=== PATIENT | male | born 1960 | race Caucasian/White ===

== ENCOUNTER → 2017-01-18 | Outpatient (REF) | payer BC ==
[~2017-01-18] MED LIST: CIAL5TAB PO; PRIL40CA PO; SIMV20TA2 PO
[2017-01-18 19:14] LABS: ALBUMIN 3.8 GM/DL (3.2-5.2); ALBUMIN/GLOBULIN RATIO 1.19 (1.00-1.93); ALKALINE PHOSPHATASE 68 U/L (45-117); ALT/SGPT 33 U/L (12-78); ANION GAP 5 MEQ/L (8-16); AST/SGOT 16 U/L (15-37); BILIRUBIN,TOTAL 0.8 MG/DL (0.2-1.0); BLOOD UREA NITROGEN 12 MG/DL (7-18); CALCIUM LEVEL 8.7 MG/DL (8.5-10.1); CARBON DIOXIDE LEVEL 30 MEQ/L (21-32); CHLORIDE LEVEL 108 MEQ/L (98-107); CHOLESTEROL LEVEL 184 MG/DL (<200); CREATININE FOR GFR 0.89 MG/DL (0.70-1.30); GLOMERULAR FILTRATION RATE > 60.0 (>56); GLUCOSE, FASTING 99 MG/DL (70-105); POTASSIUM SERUM 4.7 MEQ/L (3.5-5.1); SODIUM LEVEL 143 MEQ/L (136-145); TRIGLYCERIDES LEVEL 103 MG/DL (<150)
== END ==
LOC: M SFHCLERA 10:05
PROVIDERS: ATTEND Physician Assistant
DX: Z00.00 Encounter for general adult medical examination without abnormal findings (principal); E78.2 Mixed hyperlipidemia; Z12.5 Encounter for screening for malignant neoplasm of prostate
CPT/HCPCS: 80053; 80061; G0103

== ENCOUNTER → 2017-02-04 | Outpatient (CLI) | payer BC ==
[~2017-02-04] VITALS: Ht 188 cm; Wt 127.0 kg
[~2017-02-04] MED LIST changes: +LIDOCAINE 2% INJ 100 MG/5 ML SDV (FOR ANES.) As Ordered ONE; +NS 1,000 ML IV SCH; +PROPOFOL 500 MG/50 ML VIAL As Ordered ONE
--- NOTE | 2017-02-04 09:14 | ROOR ---
Patient Name: Ja Schafer Procedure Date: 02/04/2017 8:53 AM Date of : 1960 Age: 56 Room: [facility] Gender: Male Note Status: Finalized Procedure: Colonoscopy Indications: High risk colon cancer surveillance: Personal history of colon cancer, (Stalked Malignant polyp/AdenoCA - endoscopic resection with clear margin/stalk 2015) Providers: Igor QUINTANA MD Referring MD: YANET Sosa Requesting Provider: Medicines: Monitored Anesthesia Care Complications: No immediate complications. Procedure: Pre-Anesthesia Assessment: - The heart rate, respiratory rate, oxygen saturations, blood pressure, adequacy of pulmonary ventilation, and response to care were monitored throughout the procedure. The Colonoscope was introduced through the anus and advanced to the cecum, identified by appendiceal orifice and ileocecal valve. The colonoscopy was performed without difficulty. The patient tolerated the procedure well. The quality of the bowel preparation was good. Findings: The perianal and digital rectal examinations were normal. A tattoo was seen at 20 cm proximal to the anus. A post-polypectomy scar was found at the tattoo site. There was no evidence of residual polyp tissue. Biopsies were taken with a cold forceps for histology. The exam was otherwise without abnormality on direct and retroflexion views. Impression: - A tattoo was seen at 20 cm proximal to the anus. A post-polypectomy scar was found at the tattoo site. There was no evidence of residual polyp tissue. Biopsied. - The examination was otherwise normal on direct and retroflexion views. Recommendation: - Repeat colonoscopy in 1 year for surveillance. Igor Quintana MD Igor QUINTANA MD 02/04/2017 9:14:08 AM This report has been signed electronically. Number of Addenda: 0 Note Initiated On: 02/04/2017 8:53 AM Estimated Blood Loss: Estimated blood loss: none.
[2017-02-04 09:40] VITALS: BP 144/97
== END | disposition home or self-care (01) ==
LOC: M OPP 06:54
PROVIDERS: ATTEND Internal Medicine Gastroenterology
DX: Z08 Encounter for follow-up examination after completed treatment for malignant neoplasm (principal); Z85.038 Personal history of other malignant neoplasm of large intestine; R12 Heartburn; G47.30 Sleep apnea, unspecified; R06.83 Snoring; E78.5 Hyperlipidemia, unspecified; F17.290 Nicotine dependence, other tobacco product, uncomplicated; Z79.899 Other long term (current) drug therapy

== ENCOUNTER → 2017-02-10 | Outpatient (REF) | payer BC ==
[~2017-02-10] MED LIST changes: -LIDOCAINE 2% INJ 100 MG/5 ML SDV (FOR ANES.) As Ordered ONE; -NS 1,000 ML IV SCH; -PROPOFOL 500 MG/50 ML VIAL As Ordered ONE
== END ==
LOC: M SFHCLERA 16:20
PROVIDERS: ATTEND Physician Assistant
DX: R00.2 Palpitations (principal)

== ENCOUNTER 2017-09-05 06:03 | Emergency (ER) | payer BC ==
[~2017-09-05] VITALS: Ht 188 cm; Wt 129.5 kg
[2017-09-05] MEDS ORDERED: FLUORESCEIN OPHTH 1 MG STRIP OD ONE (06:45)
[2017-09-05] MEDS ORDERED: TETRACAINE 0.5% OPHTH SOLN 4ML OD ONE (06:45)
[2017-09-05] MEDS ORDERED: VIGA0.02 OD (07:01)
[2017-09-05 07:20] VITALS: BP 126/62
== END 2017-09-05 07:25 | disposition home or self-care (01) ==
LOC: M ED 06:03
DX: H10.31 Unspecified acute conjunctivitis, right eye (principal); E78.00 Pure hypercholesterolemia, unspecified; Z79.899 Other long term (current) drug therapy

== ENCOUNTER 2018-04-07 11:03 | Day surgery (SDC) | payer BC ==
[2018-04-07] MEDS ORDERED: LIDOCAINE 2% INJ 100 MG/5 ML SDV (FOR ANES.) As Ordered (12:17)
[2018-04-07] MEDS ORDERED: PROPOFOL 200 MG/20 ML VIAL As Ordered ×2 (12:17→13:10)
== END 2018-04-07 13:36 | disposition home or self-care (01) ==
LOC: M OPP 11:03
DX: Z12.11 Encounter for screening for malignant neoplasm of colon (principal); D12.5 Benign neoplasm of sigmoid colon; Z85.038 Personal history of other malignant neoplasm of large intestine; K22.70 Barrett's esophagus without dysplasia; R07.89 Other chest pain; K21.9 Gastro-esophageal reflux disease without esophagitis; E78.5 Hyperlipidemia, unspecified; M25.569 Pain in unspecified knee; G47.30 Sleep apnea, unspecified; Z79.899 Other long term (current) drug therapy; F17.210 Nicotine dependence, cigarettes, uncomplicated
CPT/HCPCS: 45385

== ENCOUNTER → 2019-11-02 | Outpatient (CLI) | payer BC ==
[~2019-11-02] MED LIST changes: +OMEP40CA97 PO; -SIMV20TA2 PO; +SIMV20TA22 PO; +VIGA0.02 OD
--- NOTE | 2019-11-02 12:05 | REP ---
Two-view chest: 11/02/2019. Indication: Bronchitis. Cough. Comparison: None. Findings: There is blunting of the right costophrenic angle. No definite air space consolidation or pneumothorax are appreciated. The cardiomediastinal silhouette is unremarkable. Chronic left rib deformities are present. Impression: No pulmonary infiltrate. Minimal blunting of the right costophrenic angle may represent scarring or tiny effusion. Electronically Signed by Mayito Bergeron DO 11/02/2019 11:56 A
== END ==
LOC: M ADAMS 10:32
PROVIDERS: ATTEND Physician Assistant Medical
DX: J20.9 Acute bronchitis, unspecified (principal)

== ENCOUNTER → 2019-12-14 | Outpatient (REF) | payer BC ==
[2019-12-14 12:58] LABS: HEMATOCRIT 50.1 % (42.0-52.0); HEMOGLOBIN 16.1 g/dl (13.5-17.5); MEAN CORPUSCULAR HEMOGLOBIN 29.3 pg (27.0-33.0); MEAN CORPUSCULAR HGB CONC 32.1 g/dl (32.0-36.5); MEAN CORPUSCULAR VOLUME 91.1 fl (80.0-96.0); PLATELET COUNT, AUTOMATED 245 10^3/uL (150-450); WHITE BLOOD COUNT 6.4 10^3/uL (4.0-10.0)
[2019-12-14 13:41] LABS: ALBUMIN 4.1 GM/DL (3.2-5.2); ALT/SGPT 41 U/L (12-78); BILIRUBIN,TOTAL 0.9 MG/DL (0.2-1.0); BLOOD UREA NITROGEN 14 MG/DL (7-18); CALCIUM LEVEL 9.2 MG/DL (8.5-10.1); CARBON DIOXIDE LEVEL 28 MEQ/L (21-32); CHLORIDE LEVEL 106 MEQ/L (98-107); CHOLESTEROL LEVEL 306 MG/DL (<200); CHOLESTEROL RISK RATIO 5.773 (<5); CREATININE FOR GFR 1.05 MG/DL (0.70-1.30); FREE T4 1.08 NG/DL (0.76-1.46); GLOMERULAR FILTRATION RATE > 60.0 (>56); GLUCOSE, FASTING 96 MG/DL (70-100); HDL CHOLESTEROL 53 MG/DL (>40); LDL CHOLESTEROL 226 MG/DL (<100); NON-HDL-C 253 MG/DL; POTASSIUM SERUM 4.5 MEQ/L (3.5-5.1); SODIUM LEVEL 140 MEQ/L (136-145); TOTAL PROTEIN 8.1 GM/DL (6.4-8.2); TRIGLYCERIDES LEVEL 135 MG/DL (<150)
[2019-12-14 14:02] LABS: FOLATE 5.9 NG/ML
[2019-12-14 14:10] LABS: VITAMIN B12 LEVEL 455 PG/ML
== END ==
LOC: M SFHCADAM 08:27
PROVIDERS: ATTEND Physician Assistant
DX: E78.49 Other hyperlipidemia (principal); K21.9 Gastro-esophageal reflux disease without esophagitis; K22.70 Barrett's esophagus without dysplasia; N52.9 Male erectile dysfunction, unspecified; C61 Malignant neoplasm of prostate
CPT/HCPCS: 80053; 80061; 82607; 82746; 84439; 84443; 85027; G0103

== ENCOUNTER → 2020-06-05 | Outpatient (REF) | payer BC | LOC: M SFHCADAM 11:42 | PROVIDERS: ATTEND Physician Assistant | DX: Z53.9 Procedure and treatment not carried out, unspecified reason (principal); R25.2 Cramp and spasm; R68.89 Other general symptoms and signs; R07.81 Pleurodynia ==

== ENCOUNTER → 2020-10-13 | Outpatient (CLI) | payer BC ==
--- NOTE | 2020-10-13 11:58 | PFTRPT ---
Height: 74.00 Inches Weight: 275.00 Lbs BSA: 2.49 Diagnosis: R06.00 DATE: 10/13/2020 ORDERING PHYSICIAN: YANET Acuna Pre and post bronchodilator studies have excellent technical quality. Forced vital capacity is normal. FEV1 is in proportion. Obstructive index is therefore normal. Expiratory limit of the flow-volume loop does suggest nonspecific flow rate limitations. No significant bronchodilator response is identified. Total lung capacity is normal. Residual volume is in proportion. Diffusing capacity minimally elevated. No hemoglobin available for correction. Airway resistance and conductance are normal. IMPRESSION: Minimal elevation of the diffusing capacity, requires clinical correlation. MTDD
== END ==
LOC: M CARPUL 10:53
PROVIDERS: ATTEND Physician Assistant
DX: R06.00 Dyspnea, unspecified (principal)

== ENCOUNTER → 2021-06-15 | Outpatient (CLI) | payer BC ==
[~2021-06-15] MED LIST changes: +OMEP40CA4 PO; -OMEP40CA97 PO
--- NOTE | 2021-06-15 10:00 | REP ---
INDICATION: DYSPNEA, UNSPECIFIED. COMPARISON: PA and lateral chest, 06/05/2020 TECHNIQUE: Upright PA and lateral images of the chest were performed. FINDINGS: There is cardiomegaly, pulmonary venous hypertension and pulmonary interstitial edema consistent with congestive heart failure. There is a left pleural effusion. IMPRESSION: Congestive heart failure with left pleural effusion. <Electronically signed by Taye Herrera > 06/15/21 0956
== END ==
LOC: M PLAIMG 09:44
PROVIDERS: ATTEND Nurse Practitioner Family
DX: I50.9 Heart failure, unspecified (principal); J90 Pleural effusion, not elsewhere classified; I51.7 Cardiomegaly; R06.00 Dyspnea, unspecified

== ENCOUNTER → 2021-07-31 | Outpatient (CLI) | payer BC ==
--- NOTE | 2021-07-31 18:46 | REPVR ---
PROCEDURE INFORMATION: Exam: CT Chest Without Contrast; Diagnostic Exam date and time: 07/31/2021 6:14 PM Age: 61 years old Clinical indication: Other: Dyspnea, cough, abnormal finding of lung field TECHNIQUE: Imaging protocol: Diagnostic computed tomography of the chest without contrast. 3D rendering (Not supervised by radiologist): MIP and/or 3D reconstructed images were created by the technologist. Radiation optimization: All CT scans at this facility use at least one of these dose optimization techniques: automated exposure control; mA and/or kV adjustment per patient size (includes targeted exams where dose is matched to clinical indication); or iterative reconstruction. COMPARISON: CR Chest, 2 view PA, Lat 06/15/2021 10:03 AM FINDINGS: Lungs: Focal pleural thickening and adjacent parenchymal scarring left lower lobe possibly related to prior trauma. Lungs otherwise clear. Pleural spaces: Unremarkable. No pneumothorax. No pleural effusion. Heart: Unremarkable. No cardiomegaly. No pericardial effusion. Aorta: There is fusiform dilatation of the supravalvular ascending thoracic aorta which measures 4 cm. maximally. There is no saccular component. Lymph nodes: Unremarkable. No enlarged lymph nodes. Bones/joints: Rib deformities involving the left 3rd through 10th ribs consistent with prior healed fractures. The spine demonstrates mild degenerative changes. Soft tissues: Unremarkable. IMPRESSION: 1. Focal pleural thickening and adjacent parenchymal scarring left lower lobe possibly related to prior trauma. Lungs otherwise clear. 2. Rib deformities involving the left 3rd through 10th ribs consistent with prior healed fractures. 3. There is fusiform dilatation of the supravalvular ascending thoracic aorta which measures 4 cm. maximally. There is no saccular component. Electronically signed by: Elias Mooney On 07/31/2021 18:45:24 PM
== END ==
LOC: M RAD 17:32
PROVIDERS: ATTEND Nurse Practitioner Family
DX: R06.00 Dyspnea, unspecified (principal); R05 Cough; R91.8 Other nonspecific abnormal finding of lung field

== ENCOUNTER → 2021-08-20 | Outpatient (CLI) | payer BC ==
[~2021-08-20] MED LIST changes: +METHACHOLINE KIT (J7674) INH ONE
--- NOTE | 2021-08-20 09:36 | PFTRPT ---
Site: [facility], [address] [place], [address] ID: [id number] Name: DARLENE SANDOVAL Visit Date: 08/20/2021 Second ID: [id number] Referring Doctor: SIMÓN SLAUGHTER Reviewing Doctor: Michael Phipps MD Electro Tech: Javier CURRY RRT Age: 61 : 1960 Sex: Male Race: Height: 74.00 Inches Weight: 270.00 Lbs BSA: 2.47 Order IDs: [id number] Requested Test(s): <RESP-PFT.METH CHAL> Diagnosis: R05 of albuterol for post bronchodilator. Review Status: Not Reviewed Pre-Bronch Post-Bronch Pred Actual %Pred Actual %Chng SPIROMETRY FVC (L) 5.49 4.54 82 4.21 -7 FEV1 (L) 4.16 3.17 76 3.19 FEV1/FVC (%) 76 70 91 76 8 FEF 25% (L/sec) 8.66 5.11 59 5.35 4 FEF 50% (L/sec) 5.08 2.56 50 3.15 22 FEF 75% (L/sec) 1.70 0.87 51 0.54 -38 FEF 25-75% (L/sec) 3.39 2.15 63 1.96 -8 FEF Max (L/sec) 10.20 8.07 79 7.71 -4 FIVC (L) 4.35 4.04 -7 FIF 50% (L/sec) 4.74 5.39 113 4.96 -8 FIF Max (L/sec) 5.60 5.00 -10 Expiratory Time (sec) 6.21 5.70 -8 Back Extrap Vol (L) 0.06 0.11 76 Time To FEFmax (sec) 0.051 0.082 58
== END ==
LOC: M CARPUL 08:39
PROVIDERS: ATTEND Nurse Practitioner Family
DX: R05.9 Cough, unspecified (principal)
CPT/HCPCS: 94070; J7674

== ENCOUNTER → 2021-08-31 | Outpatient (CLI) | payer BC ==
[~2021-08-31] MED LIST changes: -METHACHOLINE KIT (J7674) INH ONE
== END ==
LOC: M LABSMTC 09:55
PROVIDERS: ATTEND Anesthesiology
DX: Z01.812 Encounter for preprocedural laboratory examination (principal); Z20.822 Contact with and (suspected) exposure to COVID-19

== ENCOUNTER 2021-09-04 10:31 | Day surgery (SDC) | payer BC ==
[~2021-09-04] VITALS: Ht 188 cm; Wt 123.8 kg
[~2021-09-04 10:31] MED LIST changes: +NS 1,000 ML IV ONE
--- OUTSIDE RECORDS SUMMARY | 2021-09-04 10:33 | CCD | Continuity of Care Document ---
Author Author Ja MARQUEZ N.Iam Organization Unknown Address [address] [place] [address] Phone [phone] Care Team Providers Care Rebar Fabricator Name Role Phone Dunia Natarajan P.A.-C. AUTM [phone] Antione Natarajan M.D. AUTM [phone] AUTM Unavailable Problems Description No Active Problems Social History Type Date Description Comments Sex Unknown ETOH Use 2 A Day Tobacco Use Start: Unknown Cigar occasional Smoking Status Reviewed: 08/28/21 Cigar occasional Allergies and adverse reactions Description No Known Drug Allergies Medications Active Medications SIG Qnty Indications Ordering Provide r Date Clenpiq 10-3.5-12mg-GM -GM/160ML S olution take as directed per doctor's bowel prep instructions. 320ml Z12.1 1 Igor Quintana MD 05/11/2021 Milk Of Magnesia 1200mg/15ML Suspe nsion take 45 milliliters by mouth as directed on colonoscopy prep sheet. Z12.11 Igor Quintana MD 05/11/[address] take one capsule by mouth daily for barretts esophagus 180caps Da vivictor m Quintana MD 04/07/2018 Cialis 5mg Tablets prn Unknown Medications Administered in Office Medication SIG Qnty Indications Ordering Provider Date Covid-19 vaccine, Unspecified Inj ection Unknown 03/11/2021 Covid-19 vaccine, Unspecified Inj ection Unknown 02/06/2021 Immunizations Description No Information Available Vital Signs Date Vital Result Comment 08/28/2021 4:12pm BP Systolic 130 mmHg BP Diastolic 72 mmHg Heart Rate 73 /min O2 % BldC Oximetry 98 % Respiratory Rate 20 /min Height 74 inches 6'2" Weight 279.00 lb BMI (Body Mass Index) 35.8 kg/m2 [place] Body Weight 190 lb Weight 126.554 kg BSA (Body Surface Area) 2.50 m2 06/15/2021 8:24am BP Systolic 130 mmHg BP Diastolic 84 mmHg Heart Rate 68 /min O2 % BldC Oximetry 98 % Room Air Height 74 inches 6'2" Weight 290.00 lb BMI (Body Mass Index) 37.2 kg/m2 [place] Body Weight 190 lb Weight 131.544 kg BSA (Body Surface Area) 2.55 m2 Results Description No Information Available Procedures Date Code Description Status 08/28/2021 49676 Office/Outpatient Established Mo d MDM 30-39 Min Completed 08/14/2021 44723 Diffusing Capacity Completed 08/14/2021 31185 Plethysmography Determination Madeleine ng Volumes & Per Airway Resist Completed 08/14/2021 01558 Bronchospasm Evaluation Complete d 06/15/2021 09518 Office/Outpatient New Moderate M DM 45-59 Minutes Completed 06/15/2021 04296 Spirometry Completed 05/11/2021 22764 Office/Outpatient New Moderate M DM 45-59 Minutes Completed Medical Devices Description No Information Available Encounters Type Date Location Provider Dx Diagnosis Office Visit 08/28/2021 4:15p [facility] Pulmonary/Thoracic Cameron Marquez, N.P. R06.00 Dyspnea, unspecified Z71.2 Person consulting for explan ation of exam or test findings Office Visit 06/15/2021 8:15a [facility] Pulmonary/Thoracic Cameron Marquez, N.P. R06.00 Dyspnea, unspecified R05 Cough R94.2 Abnormal results of pulmonar y function studies R91.8 Other nonspecific abnormal f inding of lung field Office Visit 05/11/2021 11:30a [facility] Gastroenterology Pra liliya Hua, RPA-C Z12.11 Encounter for screening for malignant neoplasm of colon Z85.038 Personal history of malignan t neoplasm of large intestine Z86.010 Personal history of colonic polyps K22.70 Flower's esophagus without dysplasia K21.9 Gastro-esophageal reflux dis ease without esophagitis Assessments Date Code Description Provider 08/28/2021 R06.00 Dyspnea, unspecified Shagufta Marquez ea, N.P. 08/28/2021 Z71.2 Person consulting fo r explanation of examination or test findings Elham Marquez N.PHamilton 08/14/2021 R05.9 Cough, unspecified Pulmonary Lab 06/15/2021 R06.00 Dyspnea, unspecified Shagufta Marquez ea N.PHamilton 06/15/2021 R05 Cough Elham Marquez N .PHamilton 06/15/2021 R94.2 Abnormal results of pulmonary fu nction studies Elham Marquez N.PHamilton 06/15/2021 R91.8 Other nonspecific abnormal findi ng of lung field Elham Marquez N.PHamilton 05/11/2021 Z12.11 Encounter for screening for shadi gnant neoplasm of colon Lexie Kesslerbotana, [facility] 05/11/2021 Z85.038 Personal history of other malignant neoplasm of large intestine Lexie A Checobotana, [facility] 05/11/2021 Z86.010 Personal history of colonic poly ps Lexiejorge Kesslerbotana, RPA-C 05/11/2021 K22.70 Flower's esophagus without dysp lasia Lexiejorge Kesslerbotana, RPA-C 05/11/2021 K21.9 Gastro-esophageal reflux disease without esophagitis Lexie Hinojosa Javid, [facility]- Plan of Treatment Future Appointment(s):* 09/04/2021 11:55 am - Igor Quintana MD at [facility] Gastroenterology Practice 08/28/2021 - Elham Marquez N.PHamilton* R06.00 Dyspnea, unspecified * Z71.2 Person consulting for explanation of examination or test findings * * Follow up:* Follow up as needed. Functional Status Description No Information Available Mental Status Description No Information Available Referrals Refer to Dr Reason for Referral Status Appt Date Elham Marquez F.NChong CHRONIC JUNG Closed 06/15/2021 [facility] Medical Practice-Pulmonary [address] [place], [place] [address] [phone]
--- OUTSIDE RECORDS SUMMARY | 2021-09-04 10:34 | CCD | Continuity of Care Document ---
Author Author Ja MARQUEZ N.Iam Organization Unknown Address [address] [place] [address] Phone [phone] Care Team Providers Care Qual Field Manager Name Role Phone Dunia Natarajan P.A.-C. AUTM Antione Nataarjan M.D. AUTM [phone] AUTM Unavailable Problems Description No Active Problems [...] lb BMI (Body Mass Index) 35.8 kg/m2 [place] Body Weight 190 lb Weight 126.554 kg BSA (Body Surface Area) 2.50 m2 06/15/2021 8:24am BP Systolic 130 mmHg BP Diastolic 84 mmHg Heart Rate 68 /min O2 % BldC Oximetry 98 % Room Air Height 74 inches 6'2" Weight 290.00 lb BMI (Body Mass Index) 37.2 kg/m2 [place] Body Weight 190 lb Weight 131.544 kg BSA (Body Surface Area) 2.55 m2 Results Description No Information Available Procedures Date Code Description Status 08/14/2021 08193 Diffusing Capacity Completed 08/14/2021 92504 Plethysmography Determination Madeleine ng Volumes & Per Airway Resist Completed 08/14/2021 86687 Bronchospasm Evaluation Complete d 06/15/2021 32477 Office/Outpatient New Moderate M DM 45-59 Minutes Completed 06/15/2021 47813 Spirometry Completed 05/11/2021 06957 Office/Outpatient New Moderate M DM 45-59 Minutes Completed Medical Devices Description No Information Available Encounters Type Date Location Provider Dx Diagnosis Office Visit 06/15/2021 8:15a [facility] Pulmonary/Thoracic Cameron Marquez, N.P. R06.00 Dyspnea, unspecified R05 Cough R94.2 Abnormal results of pulmonar y function studies R91.8 Other nonspecific abnormal f inding of lung field Office Visit 05/11/2021 11:30a [facility] Gastroenterology Chepe Hua, ADRIANNA-C Z12.11 Encounter for screening for malignant neoplasm [...] of examination or test findings Elham Marquez N.P. 08/14/2021 R05.9 Cough, unspecified Pulmonary Lab 06/15/2021 R06.00 Dyspnea, unspecified Shagufta Marquez ea, N.P. 06/15/2021 R05 Cough Elham Marquez N .PHamilton 06/15/2021 R94.2 Abnormal results of pulmonary fu nction studies Elham Marquez N.PHamilton 06/15/2021 R91.8 Other nonspecific abnormal findi ng of lung field Elham Marquez N.PHamilton 05/11/2021 Z12.11 Encounter for screening for shadi gnant neoplasm of colon Lexiejorge KesslerADRIANNA garza-C 05/11/2021 Z85.038 Personal history of other malignant neoplasm of large intestine Lexie KesslerboADRIANNA fajardo-C 05/11/2021 Z86.010 Personal history of colonic poly ps Lexie A ADRIANNA Hua-C 05/11/2021 K22.70 Flower's esophagus without dysp lasia Lexie A JackieagusADRIANNA garza-C 05/11/2021 K21.9 Gastro-esophageal reflux disease without esophagitis Lexie A RODRIGO Hua Plan of Treatment Future Appointment(s):* 09/04/2021 8:35 am - Igor Quintana MD at [facility] Gastroenterology Practice 08/28/2021 - Elham Marquez NChong* R06.00 Dyspnea, unspecified * Z71.2 Person consulting for explanation of examination or test findings * * Follow up:* Follow up as needed. Functional Status Description No Information Available Mental Status Description No Information Available Referrals Refer to Dr Reason for Referral Status Appt Date Elham Marquez F.NChong CHRONIC JUNG Closed 06/15/2021 [facility] Medical Practice-Pulmonary [address] [place], [place] [address] [phone]
--- OUTSIDE RECORDS SUMMARY | 2021-09-04 10:34 | CCD | Continuity of Care Document ---
Author Author Pulmonary Lab, [facility] Unknown Address [address] [place] [address] Phone [phone] Care Team Providers Care Lead Process Engineer Name Role Phone Dunia Natarajan P.A.-C. AUTM [phone] Antione Natarajan M.D. AUTM [phone] AUTM Unavailable Problems Description No Active Problems Social History Type Date Description Comments Sex Unknown ETOH Use 2 A Day Tobacco Use Start: Unknown Cigar occasional Smoking Status Reviewed: 06/15/21 Cigar occasional Allergies, Adverse Reactions, Alerts Description No Known Drug Allergies Medications Active [...] Available Vital Signs Date Vital Result Comment 06/15/2021 8:24am BP Systolic 130 mmHg BP Diastolic 84 mmHg Heart Rate 68 /min O2 % BldC Oximetry 98 % Room Air Height 74 inches 6'2" Weight 290.00 lb BMI (Body Mass Index) 37.2 kg/m2 [place] Body Weight 190 lb Weight 131.544 kg BSA (Body Surface Area) 2.55 m2 05/11/2021 11:51am BP Systolic 140 mmHg BP Diastolic 82 mmHg Height 74 inches 6'2" Weight 280.00 lb BMI (Body Mass Index) 35.9 kg/m2 [place] Body Weight 190 lb Weight 127.008 kg BSA (Body Surface Area) 2.51 m2 Results Description No Information Available Procedures Date Code Description Status 06/15/2021 45538 Office/Outpatient New Moderate M DM 45-59 Minutes Completed 06/15/2021 95096 Spirometry Completed 05/11/2021 22181 Office/Outpatient New Moderate M DM 45-59 Minutes Completed Medical Devices Description No Information Available Encounters Type Date Location Provider Dx Diagnosis Office Visit 06/15/2021 8:15a [facility] Pulmonary/Thoracic Cameron Marquez, N.P. R06.00 Dyspnea, unspecified R05 Cough R94.2 Abnormal results of pulmonar y function studies R91.8 Other nonspecific abnormal f inding of lung field Office Visit 05/11/2021 11:30a [facility] Gastroenterology Pra ctice Lexie Hinojosa RODRIGO HuaC Z12.11 Encounter for screening for malignant neoplasm of colon Z85.038 Personal history of malignan t neoplasm of large intestine Z86.010 Personal history of colonic polyps K22.70 Flower's esophagus without dysplasia K21.9 Gastro-esophageal reflux dis ease without esophagitis Assessments Date Code Description Provider 06/15/2021 R06.00 Dyspnea, unspecified Shagufta Marquez ea, N.P. 06/15/2021 R05 Cough Elham Marquez N .P. 06/15/2021 R94.2 Abnormal results of pulmonary fu nction studies Elham Marquez N.P. 06/15/2021 R91.8 Other nonspecific abnormal findi ng of lung field Elham Marquez N.P. 05/11/2021 Z12.11 Encounter for screening for shadi gnant neoplasm of colon Lexie Hinojosa ADRIANNA Hua-C 05/11/2021 Z85.038 Personal history of other malignant neoplasm of large intestine Lexie Hinojosa SUSIE Hua 05/11/2021 Z86.010 Personal history of colonic poly ps Lexie Hua, [facility]- 05/11/2021 K22.70 Flower's esophagus without dysp lasia Lexie Hua, [facility]- 05/11/2021 K21.9 Gastro-esophageal reflux disease without esophagitis Lexie Hua, [facility] Plan of Treatment Future Appointment(s):* 08/28/2021 4:15 pm - Elham Marquez N.Iam at [facility] Pulmonary/Thoracic * 08/20/2021 9:00 am - [facility] Pulmonary Lab at [facility] Pulmonary/Thoracic * 09/04/2021 8:35 am - Igor Quintana MD at [facility] Gastroenterology Practice 06/15/2021 - Elham Marquez, N.P.* R06.00 Dyspnea, unspecified * R05 Cough * R94.2 Abnormal results of pulmonary function studies * R91.8 Other nonspecific abnormal finding of lung field * * Comments:* 1. Secondary to cough or shortness of breath, we will obtain full pulmonary function studies and a methacholine bronchoprovocation study. * Follow up:* 1. Schedule pulmonary function testing with bronchodilator. 2. Schedule methacholine on a separate day and proceed if pulmonary function testing is normal. 3. Return to see me in follow up with pulmonary function testing, CXR and methacholine challenge. Functional Status Description No Information Available Mental Status Description No Information Available Referrals Refer to Dr Reason for Referral Status Appt Date Elham Marquez F.N.P. CHRONIC JUNG Closed 06/15/2021 [facility] Practice-Pulmonary [address] [place], [place] [address] [phone]
--- OUTSIDE RECORDS SUMMARY | 2021-09-04 10:34 | CCD | Continuity of Care Document ---
Author Author Ja MARQUEZ N.Iam Organization Unknown Address [address] [place] [address] Phone [phone] Care Team Providers Care Feller Machine Operator Name Role Phone Dunia Natarajan P.A.-C. AUTM Antione Natarajan M.D. AUTM [phone] AUTM Unavailable Problems Description No Active Problems [...] lb BMI (Body Mass Index) 35.8 kg/m2 [place] Body Weight 190 lb Weight 126.554 kg BSA (Body Surface Area) 2.50 m2 06/15/2021 8:24am BP Systolic 130 mmHg BP Diastolic 84 mmHg Heart Rate 68 /min O2 % BldC Oximetry 98 % Room Air Height 74 inches 6'2" Weight 290.00 lb BMI (Body Mass Index) 37.2 kg/m2 [place] Body Weight 190 lb Weight 131.544 kg BSA (Body Surface Area) 2.55 m2 Results Description No Information Available Procedures Date Code Description Status 08/28/2021 35860 Office/Outpatient Established Mo d MDM 30-39 Min Completed 08/14/2021 19410 Diffusing Capacity Completed 08/14/2021 84486 Plethysmography Determination Madeleine ng Volumes & Per Airway Resist Completed 08/14/2021 44012 Bronchospasm Evaluation Complete d 06/15/2021 51780 Office/Outpatient New Moderate M DM 45-59 Minutes Completed 06/15/2021 99191 Spirometry Completed 05/11/2021 72128 Office/Outpatient New Moderate M DM 45-59 Minutes Completed Medical Devices Description No Information Available Encounters Type Date Location Provider Dx Diagnosis Office Visit 08/28/2021 4:15p [facility] Pulmonary/Thoracic Cameron Marquez, N.P. R06.00 Dyspnea, unspecified Z71.2 Person consulting for explan ation of exam or test findings Office Visit 06/15/2021 8:15a [facility] Pulmonary/Thoracic Cameron Marquez, N.P. R06.00 Dyspnea, unspecified R05 Cough R94.2 Abnormal results of pulmonar y function studies R91.8 Other nonspecific abnormal f inding of lung field Office Visit 05/11/2021 11:30a [facility] Gastroenterology Pra liliya Hua, RPA-C Z12.11 Encounter [...] shadi gnant neoplasm of colon Lexie Kesslerbotana, [facility]-C 05/11/2021 Z85.038 Personal history of other malignant neoplasm of large intestine Lexie A Checobotana, [facility] 05/11/2021 Z86.010 Personal history of colonic poly ps Lexiejorge Kesslerbotana, RPA-C 05/11/2021 K22.70 Flower's esophagus without dysp lasia Lexiejorge Kesslerbotana, RPA-C 05/11/2021 K21.9 Gastro-esophageal reflux disease without esophagitis Lexie A Javid, [facility]- Plan of Treatment Future Appointment(s):* 09/04/2021 8:35 am - Igor Quintana MD at [facility] Gastroenterology Practice 08/28/2021 - Elham Marquez N.Iam* R06.00 Dyspnea, unspecified * Z71.2 Person consulting for explanation of examination or test findings * * Follow up:* Follow up as needed. Functional Status Description No Information Available Mental Status Description No Information Available Referrals Refer to Dr Reason for Referral Status Appt Date Elham Marquez F.NChong CHRONIC JUNG Closed 06/15/2021 [facility] Medical Practice-Pulmonary [address] [place], [place] [address] [phone]
--- OUTSIDE RECORDS SUMMARY | 2021-09-04 10:34 | CCD ---
Continuity of Care Document (CCD) Created on: 08/18/2021 Ja Schafer External Reference #: [id number] : [id number] Sex: Male Author Author Pulmonary Lab, Ja [facility] Unknown Address [address] [place] [address] Phone [phone] Care Team Providers Care Fabric Separator Operator Name Role Phone Dunia Natarajan P.A.-C. AUTM [phone] Antione Natarajan M.D. AUTM [phone] AUTM Unavailable Problems Description No Active Problems Social History Type Date Description Comments Sex Unknown ETOH Use 2 A Day Tobacco Use Start: Unknown Cigar occasional Smoking Status Reviewed: 06/15/21 Cigar occasional Allergies and adverse reactions Description [...] mouth daily for barretts esophagus 180caps Da janina Quintana MD 04/07/2018 Cialis 5mg Tablets prn [...] lb BMI (Body Mass Index) 37.2 kg/m2 [place] Body Weight 190 lb Weight 131.544 kg BSA (Body Surface Area) 2.55 m2 05/11/2021 11:51am BP Systolic 140 mmHg BP Diastolic 82 mmHg Height 74 inches 6'2" Weight 280.00 lb BMI (Body Mass Index) 35.9 kg/m2 [place] Body Weight 190 lb Weight 127.008 kg BSA (Body Surface Area) 2.51 m2 Results Description No Information Available Procedures Date Code Description Status 08/14/2021 33830 Diffusing Capacity Completed 08/14/2021 02070 Plethysmography Determination Madeleine ng Volumes & Per Airway Resist Completed 08/14/2021 96411 Bronchospasm Evaluation Complete d 06/15/2021 95314 Office/Outpatient New Moderate M DM 45-59 Minutes Completed 06/15/2021 47564 Spirometry Completed 05/11/2021 64626 Office/Outpatient New Moderate M DM 45-59 Minutes Completed Medical Devices Description No Information Available Encounters Type Date Location Provider Dx Diagnosis Office Visit 06/15/2021 8:15a [facility] Pulmonary/Thoracic Cameron Marquez, N.P. R06.00 Dyspnea, unspecified R05 Cough R94.2 Abnormal results of pulmonar y function studies R91.8 Other nonspecific abnormal f inding of lung field Office Visit 05/11/2021 11:30a [facility] Gastroenterology [facility] liliya Hua, ADRIANNA-C Z12.11 Encounter for screening for malignant neoplasm of colon Z85.038 Personal history of malignan t neoplasm of large intestine Z86.010 Personal history of colonic polyps K22.70 Flower's esophagus without dysplasia K21.9 Gastro-esophageal reflux dis ease without esophagitis Assessments Date Code Description Provider 08/14/2021 R05.9 Cough, unspecified Pulmonary Lab 06/15/2021 R06.00 Dyspnea, unspecified Shagufta Marquez ea, N.P. 06/15/2021 R05 Cough Elham Marquez, N .P. 06/15/2021 R94.2 Abnormal results of pulmonary fu nction studies Elham Marquez, N.P. 06/15/2021 R91.8 Other nonspecific abnormal findi ng of lung field Elham Marquez, N.P. 05/11/2021 Z12.11 Encounter for screening for shadi gnant neoplasm of colon [facility], [facility] 05/11/2021 Z85.038 Personal history of other malignant neoplasm of large intestine Lexie Hua, [facility] 05/11/2021 Z86.010 Personal history of colonic poly ps Lexie Hua, [facility] 05/11/2021 K22.70 Flower's esophagus without dysp lasia Lexie Hua, [facility] 05/11/2021 K21.9 Gastro-esophageal reflux disease without esophagitis Lexie Hua, [facility]- Plan of Treatment Future Appointment(s):* 08/28/2021 4:15 pm - Elham Marquez, N.P. at [facility] Pulmonary/Thoracic * 08/20/2021 9:00 am - [facility] Pulmonary Lab at [facility] Pulmonary/Thoracic * 09/04/2021 8:35 am - Igor Quintana MD at [facility] Gastroenterology Practice 06/15/2021 - Elham Marquez, N.P.* [...] Elham Marquez F.N.P. CHRONIC JUNG Closed 06/15/2021 [facility] Medical Practice-Pulmonary [address] [place], [place] [address] [phone]
--- OUTSIDE RECORDS SUMMARY | 2021-09-04 10:34 | CCD | Continuity of Care Document ---
Author Author Pulmonary Lab, Ja [facility] Unknown Address [address] [place] [address] Phone [phone] Care Team Providers Care Application Design Engineer Name Role Phone Dunia Natarajan P.A.-C. AUTM [phone] Antione Natarajan M.D. AUTM [phone] AUTM Unavailable Problems Description No Active Problems [...] lb BMI (Body Mass Index) 37.2 kg/m2 [place] Body Weight 190 lb Weight 131.544 kg BSA (Body Surface Area) 2.55 m2 05/11/2021 11:51am BP Systolic 140 mmHg BP Diastolic 82 mmHg Height 74 inches 6'2" Weight 280.00 lb BMI (Body Mass Index) 35.9 kg/m2 [place] Body Weight 190 lb Weight 127.008 kg BSA (Body Surface Area) 2.51 m2 Results Description No Information Available Procedures Date Code Description Status 06/15/2021 03302 Office/Outpatient New Moderate M DM 45-59 Minutes Completed 06/15/2021 43618 Spirometry Completed 05/11/2021 93199 Office/Outpatient New Moderate M DM 45-59 Minutes Completed Medical Devices Description No Information Available Encounters Type Date Location Provider Dx Diagnosis Office Visit 06/15/2021 8:15a [facility] Pulmonary/Thoracic Cameron Marquez, N.P. R06.00 Dyspnea, unspecified R05 Cough R94.2 Abnormal results of pulmonar y function studies R91.8 Other nonspecific abnormal f inding of lung field Office Visit 05/11/2021 11:30a [facility] Gastroenterology Pra ctice Lexie Hinojosa RODRIGO HuaC [...] history of colonic poly ps Lexie Hua, [facility]- 05/11/2021 K22.70 Flower's esophagus without dysp lasia Lexie Hua, [facility]- 05/11/2021 K21.9 Gastro-esophageal reflux disease without esophagitis Lexie Hua, [facility] Plan of Treatment Future Appointment(s):* 08/28/2021 4:15 pm - Elham Marquez N.Iam at [facility] Pulmonary/Thoracic * 08/20/2021 9:00 am - [facility] Pulmonary Lab at [facility] Pulmonary/Thoracic * 09/04/2021 8:35 am - Igor Quintana MD at [facility] Gastroenterology Practice 06/15/2021 - Elham Marquez, N.P.* [...] Elham Marquez F.N.P. CHRONIC JUNG Closed 06/15/2021 [facility] Practice-Pulmonary [address] [place], [place] [address] [phone]
--- OUTSIDE RECORDS SUMMARY | 2021-09-04 10:34 | CCD | Continuity of Care Document ---
Author Author Pulmonary Lab, Ja [facility] Unknown Address [address] [place] [address] Phone [phone] Care Team Providers Care Credit Manager Name Role Phone Dunia Natarajan P.A.-C. AUTM [phone] Antione Natarajan M.D. AUTM [phone] AUTM Unavailable Problems Description No Active Problems [...] lb BMI (Body Mass Index) 37.2 kg/m2 [place] Body Weight 190 lb Weight 131.544 kg BSA (Body Surface Area) 2.55 m2 05/11/2021 11:51am BP Systolic 140 mmHg BP Diastolic 82 mmHg Height 74 inches 6'2" Weight 280.00 lb BMI (Body Mass Index) 35.9 kg/m2 [place] Body Weight 190 lb Weight 127.008 kg BSA (Body Surface Area) 2.51 m2 Results Description No Information Available Procedures Date Code Description Status 06/15/2021 29546 Office/Outpatient New Moderate M DM 45-59 Minutes Completed 06/15/2021 09486 Spirometry Completed 05/11/2021 28821 Office/Outpatient New Moderate M DM 45-59 Minutes Completed Medical Devices Description No Information Available Encounters Type Date Location Provider Dx Diagnosis Office Visit 06/15/2021 8:15a [facility] Pulmonary/Thoracic Cameron Marquez, N.P. R06.00 Dyspnea, unspecified R05 Cough R94.2 Abnormal results of pulmonar y function studies R91.8 Other nonspecific abnormal f inding of lung field Office Visit 05/11/2021 11:30a [facility] Gastroenterology Pra ctice Lexie Hinojosa RODRIGO HuaC [...] history of colonic poly ps Lexie Hua, [facility]- 05/11/2021 K22.70 Flower's esophagus without dysp lasia Lexie Hua, [facility]- 05/11/2021 K21.9 Gastro-esophageal reflux disease without esophagitis Lexie Hua, [facility] Plan of Treatment Future Appointment(s):* 08/28/2021 4:15 pm - Elham Marquez N.Iam at [facility] Pulmonary/Thoracic * 08/20/2021 9:00 am - [facility] Pulmonary Lab at [facility] Pulmonary/Thoracic * 09/04/2021 8:35 am - Igor Quintana MD at [facility] Gastroenterology Practice 06/15/2021 - Elham Marquez, N.P.* [...] Elham Marquez F.N.P. CHRONIC JUNG Closed 06/15/2021 [facility] Practice-Pulmonary [address] [place], [place] [address] [phone]
--- OUTSIDE RECORDS SUMMARY | 2021-09-04 10:34 | CCD | Continuity of Care Document ---
Author Author Ja MARQUEZ N.Iam Organization Unknown Address [address] [place] [address] Phone [phone] Care Team Providers Care Technical Support Specialist Name Role Phone Dunia Natarajan P.A.-C. AUTM Antione Natarajan M.D. AUTM [phone] AUTM Unavailable Problems Description No Active Problems [...] lb BMI (Body Mass Index) 35.8 kg/m2 [place] Body Weight 190 lb Weight 126.554 kg BSA (Body Surface Area) 2.50 m2 06/15/2021 8:24am BP Systolic 130 mmHg BP Diastolic 84 mmHg Heart Rate 68 /min O2 % BldC Oximetry 98 % Room Air Height 74 inches 6'2" Weight 290.00 lb BMI (Body Mass Index) 37.2 kg/m2 [place] Body Weight 190 lb Weight 131.544 kg BSA (Body Surface Area) 2.55 m2 Results Description No Information Available Procedures Date Code Description Status 08/14/2021 68812 Diffusing Capacity Completed 08/14/2021 61154 Plethysmography Determination Madeleine ng Volumes & Per Airway Resist Completed 08/14/2021 82068 Bronchospasm Evaluation Complete d 06/15/2021 89044 Office/Outpatient New Moderate M DM 45-59 Minutes Completed 06/15/2021 67682 Spirometry Completed 05/11/2021 46417 Office/Outpatient New Moderate M DM 45-59 Minutes Completed Medical Devices Description No Information Available Encounters Type Date Location Provider Dx Diagnosis Office Visit 06/15/2021 8:15a [facility] Pulmonary/Thoracic Cameron Marquez, N.P. R06.00 Dyspnea, unspecified R05 Cough R94.2 Abnormal results of pulmonar y function studies R91.8 Other nonspecific abnormal f inding of lung field Office Visit 05/11/2021 11:30a [facility] Gastroenterology Chepe Hua, ADRIANNA-C Z12.11 Encounter for [...] 8:35 am - Igor Quintana MD at [facility] Gastroenterology Practice 08/28/2021 - Elham Marquez NChong* R06.00 Dyspnea, unspecified * Z71.2 Person consulting for explanation of examination or test findings * * Follow up:* Follow up as needed. Functional Status Description No Information Available Mental Status Description No Information Available Referrals Refer to Dr Reason for Referral Status Appt Date Elham Marquez F.NChong CHRONIC JUNG Closed 06/15/2021 [facility] Medical Practice-Pulmonary [address] [place], [place] [address] [phone]
--- OUTSIDE RECORDS SUMMARY | 2021-09-04 10:34 | CCD ---
Author Author [facility] Address Unknown Phone Unavailable Care Team Providers Care Pipe Joints Supervisor Name Role Phone Charlebois, A Lexie RPA C Unavailable Unavailable Charlebois, A Lexie RPA C Unavailable Unavailable Charlebois, A Lexie RPA C Unavailable Unavailable Charlebois, A Lexie RPA C Unavailable Unavailable Charlebois, A Lexie RPA C Unavailable Unavailable Charlebois, A Lexie RPA C Unavailable Unavailable Charlebois, A Lexie RPA C Unavailable Unavailable Charlebois, A Lexie RPA C Unavailable Unavailable Charlebois, A Lexie RPA C Unavailable Unavailable Charlebois, A Lexie RPA C Unavailable Unavailable Charlebois, A Lexie RPA C Unavailable Unavailable Charlebois, A Lexie RPA C Unavailable Unavailable Charlebois, A Lexie RPA C Unavailable Unavailable Charlebois, A Lexie RPA C Unavailable Unavailable Charlebois, A Lexie RPA C Unavailable Unavailable Charlebois, A Lexie RPA C Unavailable Unavailable Charlebois, A Lexie RPA C Unavailable Unavailable Charlebois, A Lexie RPA C Unavailable Unavailable Charlebois, A Lexie RPA C Unavailable Unavailable Charlebois, A Lexie RPA C Unavailable Unavailable Charlebois, A Lexie RPA C Unavailable Unavailable Charlebois, A Lexie RPA C Unavailable Unavailable Charlebois, A Lexie RPA C Unavailable Unavailable Charlebois, A Lexie RPA C Unavailable Unavailable Charlebois, A Lexie RPA C Unavailable Unavailable Charlebois, A Lexie RPA C Unavailable Unavailable Charlebois, A Lexie RPA C Unavailable Unavailable Charlebois, A Lexie RPA C Unavailable Unavailable Charlebois, A Lexie RPA C Unavailable Unavailable Charlebois, A Lexie RPA C Unavailable Unavailable Charlebois, A Lexie RPA C Unavailable Unavailable Charlebois, A Lexie RPA C Unavailable Unavailable Charlebois, A Lexie RPA C Unavailable Unavailable SUKHJINDER, GIBSON SIMÓN RIGGING LOFT REPAIRER-C Unavailable Unavailable SUKHJINDER, GIBSON SIMÓN RIGGING LOFT REPAIRER-C Unavailable Unavailable SUKHJINDER, GIBSON SIMÓN RIGGING LOFT REPAIRER-C Unavailable Unavailable SUKHJINDER, GIBSON SIMÓN RIGGING LOFT REPAIRER-C Unavailable Unavailable SUKHJINDER, GIBSON SIMÓN RIGGING LOFT REPAIRER-C Unavailable Unavailable SUKHJINDER, GIBSON SIMÓN RIGGING LOFT REPAIRER-C Unavailable Unavailable SUKHJINDER, GIBSON SIMÓN RIGGING LOFT REPAIRER-C Unavailable Unavailable SUKHJINDER, GIBSON SIMÓN RIGGING LOFT REPAIRER-C Unavailable Unavailable SUKHJINDER, GIBSON SIMÓN RIGGING LOFT REPAIRER-C Unavailable Unavailable SUKHJINDER, GIBSON SIMÓN RIGGING LOFT REPAIRER-C Unavailable Unavailable SUKHJINDER, GIBSON SIMÓN RIGGING LOFT REPAIRER-C Unavailable Unavailable SUKHJINDER, GIBSON SIMÓN RIGGING LOFT REPAIRER-C Unavailable Unavailable SUKHJINDER, GIBSON SIMÓN RIGGING LOFT REPAIRER-C Unavailable Unavailable SUKHJINDER, GIBSON SIMÓN RIGGING LOFT REPAIRER-C Unavailable Unavailable SUKHJINDER, GIBSON SIMÓN RIGGING LOFT REPAIRER-C Unavailable Unavailable SUKHJINDER, GIBSON SIMÓN RIGGING LOFT REPAIRER-C Unavailable Unavailable SUKHJINDER, GIBSON SIMÓN RIGGING LOFT REPAIRER-C Unavailable Unavailable Re-disclosure Warning The records that you are about to access may contain information from federally-assisted alcohol or drug abuse programs. If such information is present, then the following federally mandated warning applies: This information has been disclosed to you from records protected by federal confidentiality rules (42 CFR part 2). The federal rules prohibit you from making any further disclosure of this information unless further disclosure is expressly permitted by the written consent of the person to whom it pertains or as otherwise permitted by 42 CFR part 2. A general authorization for the release of medical or other information is NOT sufficient for this purpose. The Federal rules restrict any use of the information to criminally investigate or prosecute any alcohol or drug abuse patient.The records that you are about to access may contain highly sensitive health information, the redisclosure of which is protected by Article 27-F of the [facility] Public Health law. If you continue you may have access to information: Regarding HIV / AIDS; Provided by facilities licensed or operated by the [facility] Office of Mental Health; or Provided by the [facility] Office for People With Developmental Disabilities. If such information is present, then the following [facility] mandated warning applies: This information has been disclosed to you from confidential records which are protected by state law. State law prohibits you from making any further disclosure of this information without the specific written consent of the person to whom it pertains, or as otherwise permitted by law. Any unauthorized further disclosure in violation of state law may result in a fine or senior care sentence or both. A general authorization for the release of medical or other information is NOT sufficient authorization for further disc losure. Family History Family Member Name Family Member Gender Family Member Status Date o f Status Description Data Source(s) Unknown Unknown Problem MEDENT ([facility]) Unknown Unknown Problem MEDENT ([facility], ) Unknown Female Problem MEDENT ([facility] ) Encounters Encounter Providers Location Date Indications Data Source(s ) Outpatient Attender: SIMÓN Schuster/Paulina/Raymond/R eindl 08/28/2021 04:15:00 PM EDT [facility] Outpatient Attender: SIMÓN Schuster/[place]/Raymond/R eindl 06/15/2021 08:15:00 AM EDT MEDENT [facility] Outpatient Attender: Lexie Schuster/Paulina/Micaela perez/Lilian 05/11/2021 11:30:00 AM EDT MEDENT ([facility] [place]) [place] [address] [facility] [facility] [address] 03/27/2021 12:00:00 AM EDT eCW1 ([facility]) Unknown [address] [facility] [address] 02/25/2021 12:00:00 AM EDT eCW1 ([facility]) Unknown [address] [facility] [address] 08/15/2020 12:00:00 AM EDT eCW1 ([facility]) Immunizations Vaccine Date Status Description Data Source(s) COVID-19 VACCINE Moderna 03/11/2021 12:00:00 AM EDT completed [facility] Vaccine Series Complete: YESThis Data wa s Submitted to [facility] Via 140 Proof. COVID-19 VACC,MRNA(MODERNA)/PF 02/06/2021 12:00:00 AM EDT completed [facility] Medications Medication Brand Name Start Date Product Form Dose Route Admi nistrative Instructions Pharmacy Instructions Status Indications Reaction Description Data Source(s) Citric Acid 75 MG/ML / Magnesium Oxide 2 1.9 MG/ML / picosulfate sodium 0.0625 MG/ML Oral Solution [Clenpiq] 10 mg-3.5 gram -12 gram/160 mL SOD PICOSULF/MAG OX/CITRIC AC 08/31/2021 12:00:00 AM EDT solution 320 T KEVIN DIRECTED PER DOCTOR'S BOWEL PREP INSTRUCTIONS TAKE DIRECTED PER DOCTOR'S BOWEL PREP INSTRUCTIONS SOLD: 08/31/2021 [facility] Magnesium Hydroxide 80 MG/ML Oral Suspension Milk Of Magnesi a 05/11/2021 12:00:00 AM EDT ORAL active M EDENT ([facility], ) Clenpiq Clenpiq 05/11/2021 12:00:00 AM EDT active MEDENT ([facility], ) Cyclobenzaprine hydrochloride 5 MG Oral Tablet CYCLOBENZAPRI NE HCL 04/16/2021 12:00:00 AM EDT tablet 20 TAKE ONE TO TWO TABLETS BY MOUTH AT BEDTIME NEEDED TAKE ONE TO TWO TABLETS BY MOUTH AT BEDTIME NEEDED SOLD: 01/2021 [facility] Cyclobenzaprine hydrochloride 5 MG Oral Tablet Cyclobe nzaprine HCl 5 MG Cyclobenzaprine HCl 5 MG 03/27/2021 12:00:00 AM EDT active Cyclobenzaprine HCl 5 MG eCW1 ([facility]) Covid-19 vaccine, Unspecified 03/11/2021 12:00:00 AM EDT completed MEDENT ([facility], ) Medication administered onsite Covid-19 vaccine, Unspecified 02/06/2021 12:00:00 AM EDT completed MEDENT ([facility], ) Medication administered onsite Insurance Providers Payer name Policy type / Coverage type Policy ID Covered alliance party ID Covered alliance party's relationship to padilla Policy Padilla Plan Information [employer] 306/806 [id number] [place] [id number] BS [employer] Commercial 302/802 [id number] Family Dependent 302/802 [place] 306/806 [id number] [place] [id number] [employer] BCBS [id number] Spo VYS [employer] BCBS B [id number] P VYS [place]BS [place] PPO 302/307 [id number] [place] [id number] BCBS/[employer] Commercial [id number] Family Dependent [id number] [place] 302/307 [id number] [place]2 [id number] [employer] [place] 306/806 [id number] [place] [id number] [employer] BCBS Health Maintenance Organization (HMO) [id number] Family Dependent [id number] [facility] O [id number] P [id number] [employer] BCBS PI PI BCBS/[employer] Commercial [id number] Family Dependent [id number] RSI JOSHUA O [id number] S [id number] [employer] BCBS Health Maintenance Organization (HMO) [id number] Family Dependent [id number] RSI JOSHUA O UNAVAILABLE P UNAVAI LABLE EXCELLUS BCBS B [id number] S [id number] BCBS/[employer] Commercial [id number] Family Dependent [place] 306/806 [id number] [place]2 [id number] [place] 306/8 P [id number] S [id number] [place]BS [place] PPO 302/307 [id number] WI2 [id number] [employer] [place] 306/806 [id number] [place]2 [id number] [employer] [place] 306/806 [id number] [place]2 [id number] BCBS [place] PPO 302/307 [id number] [place]2 [id number] Problems, Conditions, and Diagnoses Code Display Name Description Problem Type Effective Dates Data Source(s) E78.00 [id number] Pure hypercholesterolemia Problem 08/15/2020 12:00:00 AM EDT eCW1 ([facility]) Surgeries/Procedures Procedure Description Date Indications Data Source(s) OFFICE OUTPATIENT VISIT 25 MINUTES 08/28/2021 12:00:00 AM EDT MEDENT ([facility], ) Bronchospasm Evaluation 08/14/2021 12:00:00 AM EDT MEDENT ([facility], ) Plethysmography Determination Lung Volumes & Per Airway Resi st 08/14/2021 12:00:00 AM EDT MEDENT ([facility], ) DIFFUSING CAPACITY 08/14/2021 12:00:00 AM EDT [facility] ([facility]) Spirometry 06/15/2021 12:00:00 AM EDT [facility]) OFFICE OUTPATIENT NEW 45 MINUTES 06/15/2021 12:00:00 A M EDT [facility] ([facility]) OFFICE OUTPATIENT NEW 45 MINUTES 05/11/2021 12:00:00 A M EDT [facility] ([facility]) Results ID Date Data Source CPK CREATINE PHOSPHOKINASE 08/12/2020 06:13:18 AM EDT eCW1 ( [facility]) Name Value Range Interpretation Code Description Data Joanna rce(s) Supporting Document(s) 461 [facility] ([facility]) Procedure Social History Code Duration Value Status Description Data Source(s ) Smoking 03/27/2021 12:00:00 AM EDT Current some day smoker com pleted Current some day smoker [facility] ([facility]) Vital Signs ID Date Data Source UNK Name Value Range Interpretation Code Description Data Source(s) [place] body weight 190 [lb_av] 190 [lb_av] [facility] Body surface area Derived from formula 2.50 m2 2.50 m2 [facility] ([facility]) Body height 74 [in_i] 74 [in_i] [facility] ([facility]) 6'2" Body weight 279.00 [lb_av] 279.00 [lb_av] [facility]) Body mass index (BMI) [Ratio] 35.8 kg/m2 35.8 k g/m2 [facility] ([facility]) Body weight 126.554 kg 126.554 kg [facility] ([facility]) Systolic blood pressure 130 mm[Hg] 130 mm[Hg] [facility] ([facility]) Diastolic blood pressure 72 mm[Hg] 72 mm[Hg] [facility] ([facility]) Heart rate 73 /min 73 /min [facility] ([facility]) Oxygen saturation in Arterial blood by Pulse oximetry 98 % 98 % [facility] ([facility]) Respiratory rate 20 /min 20 /min [facility] ( [facility]) Body height 74 [in_i] 74 [in_i] [facility] ([facility]) 6'2" Systolic blood pressure 130 mm[Hg] 130 mm[Hg] M [facility] ([facility]) Diastolic blood pressure 84 mm[Hg] 84 mm[Hg] [facility] ([facility]) Oxygen saturation in Arterial blood by Pulse oximetry 98 % 98 % [facility] ([facility]) Room Air Heart rate 68 /min 68 /min [facility] ([facility]) Body weight 290.00 [lb_av] 290.00 [lb_av] [facility] ([facility]) Body mass index (BMI) [Ratio] 37.2 kg/m2 37.2 k g/m2 [facility] ([facility]) [place] body weight 190 [lb_av] 190 [lb_av] [facility] ([facility]) Body weight 131.544 kg 131.544 kg [facility] ([facility]) Body surface area Derived from formula 2.55 m2 2.55 m2 [facility] ([facility]) Body height 74 [in_i] 74 [in_i] [facility] ([facility]) 6'2" Body height 74 [in_i] 74 [in_i] [facility] ([facility]) 6'2" Body weight 280.00 [lb_av] 280.00 [lb_av] [facility] T ([facility]) Body mass index (BMI) [Ratio] 35.9 kg/m2 35.9 k g/m2 [facility] ([facility]) [place] body weight 190 [lb_av] 190 [lb_av] [facility] ([facility]) Body weight 127.008 kg 127.008 kg [facility] ([facility]) Body surface area Derived from formula 2.51 m2 2.51 m2 [facility] ([facility]) Systolic blood pressure 140 mm[Hg] 140 mm[Hg] [facility] ([facility]) Diastolic blood pressure 82 mm[Hg] 82 mm[Hg] [facility] ([facility]) Body weight 127.008 kg 127.008 kg [facility] ([facility]) Body surface area Derived from formula 2.51 m2 2.51 m2 [facility] ([facility]) [place] body weight 190 [lb_av] 190 [lb_av] [facility] T ([facility]) Body weight 280.00 [lb_av] 280.00 [lb_av] [facility] T ([facility]) Body mass index (BMI) [Ratio] 35.9 kg/m2 35.9 k g/m2 [facility] ([facility]) Body weight 294.6 [lb_av] 294.6 [lb_av] eCW1 ([facility]) Body height 72 [in_i] 72 [in_i] eCW1 ([facility]) Body mass index (BMI) [Ratio] 39.95 kg/m2 39.95 kg/m2 eCW1 ([facility]) Heart rate 77 /min 77 /min [facility] Respiratory rate 18 /min 18 /min W1 ([facility]) Body temperature 97.1 [degF] 97.1 [degF] eCW1 ( [facility]) Systolic blood pressure 130 mm[Hg] 130 mm[Hg] e CW1 ([facility]) Diastolic blood pressure 80 mm[Hg] 80 mm[Hg] eCW1 ([facility]) Patient Treatment Plan of Care Planned Activity Planned Date Details Description Data Source (s) Cyclobenzaprine hydrochloride 5 MG Oral Tablet 03/27/2021 12:00:00 AM EDT eCW1 ([facility])
--- OUTSIDE RECORDS SUMMARY | 2021-09-04 10:34 | CCD | Continuity of Care Document ---
Author Author Pulmonary Lab, Ja [facility] Unknown Address [address] [place] [address] Phone [phone] Care Team Providers Care Patient Financial Rep Name Role Phone Dunia Natarajan P.A.-C. AUTM [phone] Antione Natarajan M.D. AUTM [phone] AUTM Unavailable Problems Description No Active Problems [...] lb BMI (Body Mass Index) 37.2 kg/m2 [place] Body Weight 190 lb Weight 131.544 kg BSA (Body Surface Area) 2.55 m2 05/11/2021 11:51am BP Systolic 140 mmHg BP Diastolic 82 mmHg Height 74 inches 6'2" Weight 280.00 lb BMI (Body Mass Index) 35.9 kg/m2 [place] Body Weight 190 lb Weight 127.008 kg BSA (Body Surface Area) 2.51 m2 Results Description No Information Available Procedures Date Code Description Status 08/14/2021 86185 Diffusing Capacity Completed 08/14/2021 73613 Plethysmography Determination Madeleine ng Volumes & Per Airway Resist Completed 08/14/2021 50096 Bronchospasm Evaluation Complete d 06/15/2021 55639 Office/Outpatient New Moderate M DM 45-59 Minutes Completed 06/15/2021 23558 Spirometry Completed 05/11/2021 00187 Office/Outpatient New Moderate M DM 45-59 Minutes Completed Medical Devices Description No Information Available Encounters Type Date Location Provider Dx Diagnosis Office Visit 06/15/2021 8:15a [facility] Pulmonary/Thoracic Cameron Marquez, N.P. R06.00 Dyspnea, unspecified R05 Cough R94.2 Abnormal results of pulmonar y function studies R91.8 Other nonspecific abnormal f inding of lung field Office Visit 05/11/2021 11:30a [facility] Gastroenterology [facility] liliya Hua, ADRIANNA-C Z12.11 Encounter for screening [...] shadi gnant neoplasm of colon [facility] 05/11/2021 Z85.038 Personal history of other malignant neoplasm of large intestine Lexie Hua, [facility] 05/11/2021 Z86.010 Personal history of colonic poly ps Lexie Hua, [facility] 05/11/2021 K22.70 Flower's esophagus without dysp lasia Lexie Hua, [facility] 05/11/2021 K21.9 Gastro-esophageal reflux disease without esophagitis Lexie Hua, [facility] Plan of Treatment Future Appointment(s):* 08/28/2021 4:15 pm - Elham Marquez, N.P. at [facility] Pulmonary/Thoracic * 08/20/2021 9:00 am - [facility] Pulmonary Lab at [facility] Pulmonary/Thoracic * 09/04/2021 8:35 am - Igor Quintana MD at [facility] Gastroenterology Practice 06/15/2021 - Elham Marquez, N.P.* [...] Elham Marquez F.N.P. CHRONIC JUNG Closed 06/15/2021 [facility] Medical Practice-Pulmonary [address] [place], [place] [address] [phone]
--- OUTSIDE RECORDS SUMMARY | 2021-09-04 10:34 | CCD | Continuity of Care Document ---
Author Author Ja MARQUEZ N.Iam Organization Unknown Address [address] [place] [address] Phone [phone] Care Team Providers Care Advanced Manufacturing Associate Name Role Phone Dunia Natarajan P.A.-C. AUTM [phone] Antione Natarajan M.D. AUTM [phone] AUTM Unavailable Problems Description No Active Problems [...] lb BMI (Body Mass Index) 35.8 kg/m2 [place] Body Weight 190 lb Weight 126.554 kg BSA (Body Surface Area) 2.50 m2 06/15/2021 8:24am BP Systolic 130 mmHg BP Diastolic 84 mmHg Heart Rate 68 /min O2 % BldC Oximetry 98 % Room Air Height 74 inches 6'2" Weight 290.00 lb BMI (Body Mass Index) 37.2 kg/m2 [place] Body Weight 190 lb Weight 131.544 kg BSA (Body Surface Area) 2.55 m2 Results Description No Information Available Procedures Date Code Description Status 08/14/2021 64954 Diffusing Capacity Completed 08/14/2021 28225 Plethysmography Determination Madeleine ng Volumes & Per Airway Resist Completed 08/14/2021 23946 Bronchospasm Evaluation Complete d 06/15/2021 84747 Office/Outpatient New Moderate M DM 45-59 Minutes Completed 06/15/2021 51195 Spirometry Completed 05/11/2021 62881 Office/Outpatient New Moderate M DM 45-59 Minutes Completed Medical Devices Description No Information Available Encounters Type Date Location Provider Dx Diagnosis Office Visit 06/15/2021 8:15a [facility] Pulmonary/Thoracic Cameron Marqeuz, N.P. R06.00 Dyspnea, unspecified R05 Cough R94.2 Abnormal results of pulmonar y function studies R91.8 Other nonspecific abnormal f inding of lung field Office Visit 05/11/2021 11:30a [facility] Gastroenterology Chepe Hua, ADRIANNA-C Z12.11 [...] 8:35 am - Igor Quintana MD at [facility] Gastroenterology Practice 08/28/2021 - Elham Marquez NChong* R06.00 Dyspnea, unspecified * Z71.2 Person consulting for explanation of examination or test findings * * Follow up:* Follow up as needed. Functional Status Description No Information Available Mental Status Description No Information Available Referrals Refer to Dr Reason for Referral Status Appt Date Elham Marquez F.NChong CHRONIC JUNG Closed 06/15/2021 [facility] Medical Practice-Pulmonary [address] [place], [place] [address] [phone]
--- OUTSIDE RECORDS SUMMARY | 2021-09-04 10:34 | CCD | Continuity of Care Document ---
Author Ja Spears N.Iam Organization Unknown Address [address] [place] [address] Phone [phone] Care Team Providers Care Rn Placement Name Role Phone Dunia Natarajan P.A.-C. AUTM [phone] Antione Natarajan M.D. AUTM [phone] AUTM Unavailable Problems Description No Active Problems [...] lb BMI (Body Mass Index) 37.2 kg/m2 [place] Body Weight 190 lb Weight 131.544 kg BSA (Body Surface Area) 2.55 m2 05/11/2021 11:51am BP Systolic 140 mmHg BP Diastolic 82 mmHg Height 74 inches 6'2" Weight 280.00 lb BMI (Body Mass Index) 35.9 kg/m2 [place] Body Weight 190 lb Weight 127.008 kg BSA (Body Surface Area) 2.51 m2 Results Description No Information Available Procedures Date Code Description Status 05/11/2021 14877 Office/Outpatient New Moderate M DM 45-59 Minutes Completed Medical Devices Description No Information Available Encounters Type Date Location Provider Dx Diagnosis Office Visit 05/11/2021 11:30a [facility] Gastroenterology [facility] ctice Lexie Hinojosa SUSIE Hua Z12.11 Encounter for screening for malignant neoplasm [...] of pulmonary fu nction studies Elham Marquez N.PHamiltno 06/15/2021 R91.8 Other nonspecific abnormal findi ng of lung field Elham Marquez N.PHamilton 05/11/2021 Z12.11 Encounter for screening for shadi gnant neoplasm of colon Lexie A SUSIE Hua 05/11/2021 Z85.038 Personal history of other malignant neoplasm of large intestine Lexie Hinojosa SUSIE Hua 05/11/2021 Z86.010 Personal history of colonic poly ps SUSIE Noble 05/11/2021 K22.70 Flower's esophagus without dysp lasia Lexie Hinojosa SUISE Hua 05/11/2021 K21.9 Gastro-esophageal reflux disease without esophagitis SUSIE Noble Plan of Treatment Future Appointment(s):* 09/04/2021 11:45 am - Elham Marquez N.P. at [facility] Pulmonary/Thoracic * 08/20/2021 9:00 am - [facility] Pulmonary Lab at [facility] Pulmonary/Thoracic * 08/14/2021 10:00 am - Pulmonary Lab at [facility] Pulmonary/Thoracic * 09/04/2021 2:00 am - Igor Quintana MD at [facility] Gastroenterology Practice 06/15/2021 - Elham Marquez NJose.* R06.00 Dyspnea, unspecified * R05 Cough * R94.2 Abnormal results of pulmonary function studies * R91.8 Other nonspecific abnormal finding of lung field * * New Xrays:* Chest, 2 Views, PA & Lat, Ordered: 06/15/21 * Comments:* 1. Secondary to cough or [...] Appt Date Elham Marquez F.N.P. CHRONIC JUNG Scheduled 06/15/2021 [facility] [address] [place], [place] [address] [phone]
--- OUTSIDE RECORDS SUMMARY | 2021-09-04 10:34 | CCD | Continuity of Care Document ---
Author Ja Spears N.Iam Organization Unknown Address [address] [place] [address] Phone [phone] Care Team Providers Care Senior Partner Name Role Phone Dunia Natarajan P.A.-C. AUTM Antione Natarajan M.D. AUTM [phone] AUTM Unavailable Problems Description No Active Problems [...] lb BMI (Body Mass Index) 37.2 kg/m2 [place] Body Weight 190 lb Weight 131.544 kg BSA (Body Surface Area) 2.55 m2 05/11/2021 11:51am BP Systolic 140 mmHg BP Diastolic 82 mmHg Height 74 inches 6'2" Weight 280.00 lb BMI (Body Mass Index) 35.9 kg/m2 [place] Body Weight 190 lb Weight 127.008 kg BSA (Body Surface Area) 2.51 m2 Results Description No Information Available Procedures Date Code Description Status 06/15/2021 39745 Office/Outpatient New Moderate M DM 45-59 Minutes Completed 06/15/2021 91543 Spirometry Completed 05/11/2021 80799 Office/Outpatient New Moderate M DM 45-59 Minutes Completed Medical Devices Description No Information Available Encounters Type Date Location Provider Dx Diagnosis Office Visit 06/15/2021 8:15a [facility] Pulmonary/Thoracic Cameron Marquez, N.P. R06.00 Dyspnea, unspecified R05 Cough R94.2 Abnormal results of pulmonar y function studies R91.8 Other nonspecific abnormal f inding of lung field Office Visit 05/11/2021 11:30a [facility] Gastroenterology Pra ctice Lexie Micaela SUSIE Hua Z12.11 Encounter for screening for [...] screening for shadi gnant neoplasm of colon SUSIE Noble 05/11/2021 Z85.038 Personal history of other malignant neoplasm of large intestine Lexie A SUSIE Hua 05/11/2021 Z86.010 Personal history of colonic poly ps Lexie Hua [facility] 05/11/2021 K22.70 Flower's esophagus without dysp lasia Lexie Hua [facility] 05/11/2021 K21.9 Gastro-esophageal reflux disease without esophagitis Lexie Kesslerkayla [facility] Plan of Treatment Future Appointment(s):* 09/04/2021 11:45 am - Elham Marquez, N.P. at [facility] Pulmonary/Thoracic * 08/20/2021 9:00 am - [facility] Pulmonary Lab at [facility] PulmonaryThoracic * 08/14/2021 10:00 am - Pulmonary Lab at [facility] PulmonaryThoracic * 09/04/2021 2:00 am - Igor Quintana MD at [facility] Gastroenterology Practice 06/15/2021 - Elham [...] Description No Information Available Referrals Refer to Reason for Referral Status Appt Date Elham Marquez, Ruth.N.P. CHRONIC JUNG Scheduled 06/15/2021 [facility]-Pulmonary [address] [place], [place] [address] [phone]
--- OUTSIDE RECORDS SUMMARY | 2021-09-04 10:34 | CCD | Continuity of Care Document ---
Author Author Ja MARQUEZ N.Iam Organization Unknown Address [address] [place] [address] Phone [phone] Care Team Providers Care Irish Moss Operator Name Role Phone Dunia Natarajan P.A.-C. AUTM Antione Natarajan M.D. AUTM [phone] AUTM Unavailable Problems Description No Active Problems [...] lb BMI (Body Mass Index) 35.8 kg/m2 [place] Body Weight 190 lb Weight 126.554 kg BSA (Body Surface Area) 2.50 m2 06/15/2021 8:24am BP Systolic 130 mmHg BP Diastolic 84 mmHg Heart Rate 68 /min O2 % BldC Oximetry 98 % Room Air Height 74 inches 6'2" Weight 290.00 lb BMI (Body Mass Index) 37.2 kg/m2 [place] Body Weight 190 lb Weight 131.544 kg BSA (Body Surface Area) 2.55 m2 Results Description No Information Available Procedures Date Code Description Status 08/14/2021 85197 Diffusing Capacity Completed 08/14/2021 14697 Plethysmography Determination Madeleine ng Volumes & Per Airway Resist Completed 08/14/2021 17796 Bronchospasm Evaluation Complete d 06/15/2021 71436 Office/Outpatient New Moderate M DM 45-59 Minutes Completed 06/15/2021 25974 Spirometry Completed 05/11/2021 51630 Office/Outpatient New Moderate M DM 45-59 Minutes Completed Medical Devices Description No Information Available Encounters Type Date Location Provider Dx Diagnosis Office Visit 06/15/2021 8:15a [facility] Pulmonary/Thoracic Cameron Marquez, N.P. R06.00 Dyspnea, unspecified R05 Cough R94.2 Abnormal results of pulmonar y function studies R91.8 Other nonspecific abnormal f inding of lung field Office Visit 05/11/2021 11:30a [facility] Gastroenterology Chepe Hua, ADRIANNA-C Z12.11 Encounter [...] explanation of examination or test findings Elham Mraquez N.P. 08/14/2021 R05.9 Cough, unspecified Pulmonary Lab [...] - Igor Quintana MD at [facility] Gastroenterology Practice 08/28/2021 - Elham Marquez NChong* R06.00 Dyspnea, unspecified * Z71.2 Person consulting for explanation of examination or test findings * * Follow up:* Follow up as needed. Functional Status Description No Information Available Mental Status Description No Information Available Referrals Refer to Dr Reason for Referral Status Appt Date Elham Marquez F.NChong CHRONIC JUNG Closed 06/15/2021 [facility] Medical Practice-Pulmonary [address] [place], [place] [address] [phone]
--- OUTSIDE RECORDS SUMMARY | 2021-09-04 10:34 | CCD | Continuity of Care Document ---
Author Author Ja MARQUEZ N.Iam Organization Unknown Address [address] [place] [address] Phone [phone] Care Team Providers Care Personal Fitness Trainer Name Role Phone Dunia Natarajan P.A.-C. AUTM Antione Natarajan M.D. AUTM [phone] AUTM Unavailable Problems Description No Active Problems [...] lb BMI (Body Mass Index) 35.8 kg/m2 [place] Body Weight 190 lb Weight 126.554 kg BSA (Body Surface Area) 2.50 m2 06/15/2021 8:24am BP Systolic 130 mmHg BP Diastolic 84 mmHg Heart Rate 68 /min O2 % BldC Oximetry 98 % Room Air Height 74 inches 6'2" Weight 290.00 lb BMI (Body Mass Index) 37.2 kg/m2 [place] Body Weight 190 lb Weight 131.544 kg BSA (Body Surface Area) 2.55 m2 Results Description No Information Available Procedures Date Code Description Status 08/14/2021 21143 Diffusing Capacity Completed 08/14/2021 22804 Plethysmography Determination Madeleine ng Volumes & Per Airway Resist Completed 08/14/2021 55843 Bronchospasm Evaluation Complete d 06/15/2021 71892 Office/Outpatient New Moderate M DM 45-59 Minutes Completed 06/15/2021 73995 Spirometry Completed 05/11/2021 51950 Office/Outpatient New Moderate M DM 45-59 Minutes Completed Medical Devices Description No Information Available Encounters Type Date Location Provider Dx Diagnosis Office Visit 06/15/2021 8:15a [facility] Pulmonary/Thoracic Cameron Marquez, N.P. R06.00 Dyspnea, unspecified R05 Cough R94.2 Abnormal results of pulmonar y function studies R91.8 Other nonspecific abnormal f inding of lung field Office Visit 05/11/2021 11:30a [facility] Gastroenterology Chepe Hua, ADRIANNA-C Z12.11 Encounter [...] 8:35 am - Igor Quintana MD at [facility] Gastroenterology Practice 08/28/2021 - Elham Marquez NChong* R06.00 Dyspnea, unspecified * Z71.2 Person consulting for explanation of examination or test findings * * Follow up:* Follow up as needed. Functional Status Description No Information Available Mental Status Description No Information Available Referrals Refer to Dr Reason for Referral Status Appt Date Elham Marquez F.NChong CHRONIC JUNG Closed 06/15/2021 [facility] Medical Practice-Pulmonary [address] [place], [place] [address] [phone]
--- OUTSIDE RECORDS SUMMARY | 2021-09-04 10:34 | CCD | Continuity of Care Document ---
Author Author Pulmonary Lab, Ja [facility] Unknown Address [address] [place] [address] Phone [phone] Care Team Providers Care Spray Drier Name Role Phone Dunia Natarajan P.A.-C. AUTM [phone] Antione Natarajan M.D. AUTM [phone] AUTM Unavailable Problems Description No Active Problems [...] lb BMI (Body Mass Index) 37.2 kg/m2 [place] Body Weight 190 lb Weight 131.544 kg BSA (Body Surface Area) 2.55 m2 05/11/2021 11:51am BP Systolic 140 mmHg BP Diastolic 82 mmHg Height 74 inches 6'2" Weight 280.00 lb BMI (Body Mass Index) 35.9 kg/m2 [place] Body Weight 190 lb Weight 127.008 kg BSA (Body Surface Area) 2.51 m2 Results Description No Information Available Procedures Date Code Description Status 06/15/2021 33498 Office/Outpatient New Moderate M DM 45-59 Minutes Completed 06/15/2021 60598 Spirometry Completed 05/11/2021 25896 Office/Outpatient New Moderate M DM 45-59 Minutes Completed Medical Devices Description No Information Available Encounters Type Date Location Provider Dx Diagnosis Office Visit 06/15/2021 8:15a [facility] Pulmonary/Thoracic Cameron Marquez, N.P. R06.00 Dyspnea, unspecified R05 Cough R94.2 Abnormal results of pulmonar y function studies R91.8 Other nonspecific abnormal f inding of lung field Office Visit 05/11/2021 11:30a [facility] Gastroenterology Pra ctice Lexie Hinojosa RODRIGO [...] colonic poly ps Lexie Hua, [facility]- 05/11/2021 K22.70 Flower's esophagus without dysp lasia Lexie Hua, [facility]- 05/11/2021 K21.9 Gastro-esophageal reflux disease without esophagitis Lexie Hua, [facility] Plan of Treatment Future Appointment(s):* 08/28/2021 4:15 pm - Elham Marquez N.Iam at [facility] Pulmonary/Thoracic * 08/20/2021 9:00 am - [facility] Pulmonary Lab at [facility] Pulmonary/Thoracic * 09/04/2021 8:35 am - Igor Quintana MD at [facility] Gastroenterology Practice 06/15/2021 - Elham Marquez, [...] Elham Marquez F.N.P. CHRONIC JUNG Closed 06/15/2021 [facility] Practice-Pulmonary [address] [place], [place] [address] [phone]
[2021-09-04] MEDS ORDERED: fentaNYL 100 MCG/2 ML INJECTION (J3010) As Ordered ONE (11:32)
[2021-09-04] MEDS ORDERED: LIDOCAINE 2% 100MG/5ML SDV (FOR ANES.) As Ordered ONE (11:34)
[2021-09-04] MEDS ORDERED: propofoL 200 MG/20 ML VIAL As Ordered ONE ×2 (11:34→11:55)
--- NOTE | 2021-09-04 11:44 | ROOR ---
Patient Name: Ja Schafer Procedure Date: 09/04/2021 11:27 AM Date of : 1960 Age: 61 Room: [facility] Gender: Male Note Status: Finalized Procedure: Upper GI endoscopy Indications: Surveillance for malignancy due to personal history of Flower's esophagus, Heartburn Providers: Igor Quintana MD Referring MD: YANET Acuna Requesting Provider: Medicines: Monitored Anesthesia Care Complications: No immediate complications. Procedure: Pre-Anesthesia Assessment: - The heart rate, respiratory rate, oxygen saturations, blood pressure, adequacy of pulmonary ventilation, and response to care were monitored throughout the procedure. The Endoscope was introduced through the mouth, and advanced to the second part of duodenum. The upper GI endoscopy was accomplished without difficulty. The patient tolerated the procedure well. Findings: The Z-line was variable and was found 38 cm from the incisors. Biopsies were taken with a cold forceps for histology. A medium-sized hiatal hernia was present. The exam of the stomach was otherwise normal. The examined duodenum was normal. Impression: - Z-line variable, 38 cm from the incisors. Biopsied. - Medium-sized hiatal hernia. - Normal examined duodenum. Recommendation: - Repeat upper endoscopy in 3 years for surveillance of Flower's esophagus. - Continue present medications. Procedure Code(s): --- Professional --- 74656, Esophagogastroduodenoscopy, flexible, transoral; with biopsy, single or multiple Diagnosis Code(s): --- Professional --- K22.8, Other specified diseases of esophagus K44.9, Diaphragmatic hernia without obstruction or gangrene K22.70, Flower's esophagus without dysplasia R12, Heartburn CPT copyright 2019 [employer]. All rights reserved. The codes documented in this report are preliminary and upon generation manager review may be revised to meet current compliance requirements. Igor Quintana MD Igor Quintana MD 09/04/2021 11:43:39 AM Electronically signed by Igor Quintana MD Number of Addenda: 0 Note Initiated On: 09/04/2021 11:27 AM Estimated Blood Loss: Estimated blood loss: none.
--- NOTE | 2021-09-04 12:07 | ROOR ---
Patient Name: Ja Schafer Procedure Date: 09/04/2021 11:27 AM Date of : 1960 Age: 61 Room: [facility] Gender: Male Note Status: Finalized Procedure: Colonoscopy Indications: High risk colon cancer surveillance: Personal history of colon cancer Providers: Igor Quintana MD Referring MD: YANET Acuna Requesting Provider: Medicines: Monitored Anesthesia Care Complications: No immediate complications. Procedure: Pre-Anesthesia Assessment: - The heart rate, respiratory rate, oxygen saturations, blood pressure, adequacy of pulmonary ventilation, and response to care were monitored throughout the procedure. The Colonoscope was introduced through the anus and advanced to the terminal ileum, with identification of the appendiceal orifice and IC valve. The colonoscopy was performed without difficulty. The patient tolerated the procedure well. The quality of the bowel preparation was good. Findings: The perianal and digital rectal examinations were normal. Three sessile polyps were found in the sigmoid colon. The polyps were diminutive in size. These polyps were removed with a cold snare. Resection and retrieval were complete. A tattoo was seen at 20 cm proximal to the anus. A post-polypectomy scar was found at the tattoo site. There was no evidence of residual polyp tissue. Mild sigmoid diverticulosis and small internal hemorrhoids. The exam was otherwise without abnormality on direct and retroflexion views. Impression: - Three diminutive polyps in the sigmoid colon, removed with a cold snare. Resected and retrieved. - A tattoo was seen at 20 cm proximal to the anus. A post-polypectomy scar was found at the tattoo site. There was no evidence of residual polyp tissue. - Mild sigmoid diverticulosis and small internal hemorrhoids. - The examination was otherwise normal on direct and retroflexion views. Recommendation: - Await pathology results. - Repeat colonoscopy in 3 - 5 years for surveillance based on pathology results. - Telephone endoscopist for pathology results in 2 weeks. Procedure Code(s): --- Professional --- 46535, Colonoscopy, flexible; with removal of tumor(s), polyp(s), or other lesion(s) by snare technique Diagnosis Code(s): --- Professional --- K63.5, Polyp of colon Z85.038, Personal history of other malignant neoplasm of large intestine CPT copyright 2019 [employer]. All rights reserved. The codes documented in this report are preliminary and upon blue line trimmer review may be revised to meet current compliance requirements. Iogr Quintana MD Igor Quintana MD 09/04/2021 12:07:33 PM Electronically signed by Igor Quintana MD Number of Addenda: 0 Note Initiated On: 09/04/2021 11:27 AM Estimated Blood Loss: Estimated blood loss: none.
[2021-09-04 12:25] VITALS: BP 179/91
== END 2021-09-04 12:37 | disposition home or self-care (01) ==
LOC: M OPP 10:31
PROVIDERS: ATTEND Internal Medicine Gastroenterology
DX: Z12.11 Encounter for screening for malignant neoplasm of colon (principal); Z85.038 Personal history of other malignant neoplasm of large intestine; D12.5 Benign neoplasm of sigmoid colon; K57.30 Diverticulosis of large intestine without perforation or abscess without bleeding; K64.8 Other hemorrhoids; K44.9 Diaphragmatic hernia without obstruction or gangrene; K22.70 Barrett's esophagus without dysplasia; K22.89 Other specified disease of esophagus; R12 Heartburn; Z79.899 Other long term (current) drug therapy; F17.210 Nicotine dependence, cigarettes, uncomplicated
CPT/HCPCS: 43239; 45385; 88305; J3010

== ENCOUNTER → 2022-03-17 | Outpatient (CLI) | payer BC ==
[~2022-03-17] MED LIST changes: -NS 1,000 ML IV ONE
== END ==
LOC: M ADAMS 14:46
PROVIDERS: ATTEND Physician Assistant
DX: M19.011 Primary osteoarthritis, right shoulder (principal); K22.70 Barrett's esophagus without dysplasia

== ENCOUNTER → 2022-07-01 | Outpatient (REF) | payer BC ==
[2022-07-01 17:31] LABS: HEMATOCRIT 45.8 % (42.0-52.0); HEMOGLOBIN 15.1 g/dl (13.5-17.5); MEAN CORPUSCULAR HEMOGLOBIN 30.6 pg (27.0-33.0); MEAN CORPUSCULAR VOLUME 92.9 fl (80.0-96.0); PLATELET COUNT, AUTOMATED 238 10^3/uL (150-450); RED BLOOD COUNT 4.93 10^6/uL (4.30-6.10); WHITE BLOOD COUNT 5.8 10^3/uL (4.0-10.0)
[2022-07-01 17:53] LABS: ALBUMIN 3.9 GM/DL (3.2-5.2); ALT/SGPT 25 U/L (12-78); BILIRUBIN,TOTAL 2.1 MG/DL (0.2-1.0); BLOOD UREA NITROGEN 18 MG/DL (7-18); CARBON DIOXIDE LEVEL 26 MEQ/L (21-32); CHLORIDE LEVEL 102 MEQ/L (98-107); CHOLESTEROL LEVEL 231 MG/DL (<200); CHOLESTEROL RISK RATIO 4.125 (<5); CREATININE FOR GFR 0.85 MG/DL (0.70-1.30); GLOMERULAR FILTRATION RATE > 60.0 (>49); GLUCOSE, FASTING 94 MG/DL (70-100); HDL CHOLESTEROL 56 MG/DL (>40); LDL CHOLESTEROL 144 MG/DL (<100); NON-HDL-C 175 MG/DL; POTASSIUM SERUM 4.2 MEQ/L (3.5-5.1); SODIUM LEVEL 132 MEQ/L (136-145); TOTAL PROTEIN 7.2 GM/DL (6.4-8.2); TRIGLYCERIDES LEVEL 153 MG/DL (<150)
== END ==
LOC: M SFHCADAM 13:22
PROVIDERS: ATTEND Physician Assistant
DX: Z12.5 Encounter for screening for malignant neoplasm of prostate (principal); K22.70 Barrett's esophagus without dysplasia; E78.00 Pure hypercholesterolemia, unspecified
CPT/HCPCS: 80053; 80061; 85027; G0103

== ENCOUNTER → 2022-08-20 | Outpatient (CLI) | payer BC ==
[~2022-08-20] MED LIST changes: +ISOVUE-370 76% 100ML VIAL As Ordered ONE
== END ==
LOC: M RAD 13:49
PROVIDERS: ATTEND Physician Assistant
DX: I77.810 Thoracic aortic ectasia (principal)
CPT/HCPCS: 71275; Q9967

== ENCOUNTER → 2023-01-14 | Outpatient (REF) | payer BC ==
[~2023-01-14] MED LIST changes: -ISOVUE-370 76% 100ML VIAL As Ordered ONE
[2023-01-14 20:09] LABS: BASO # 0.1 10^3/uL (0.0-0.2); BASO % 2.1 % (0.0-1.0); EOS # 0.2 10^3/uL (0.0-0.5); EOS % 3.3 % (0.0-3.0); HEMATOCRIT 45.3 % (42.0-52.0); HEMOGLOBIN 14.3 g/dl (13.5-17.5); LYMPH # 1.8 10^3/uL (1.5-5.0); LYMPH % 37.7 % (24.0-44.0); MEAN CORPUSCULAR HEMOGLOBIN 29.7 pg (27.0-33.0); MEAN CORPUSCULAR HGB CONC 31.6 g/dl (32.0-36.5); MEAN CORPUSCULAR VOLUME 94.2 fl (80.0-96.0); MONO # 0.5 10^3/uL (0.0-0.8); NEUTROPHILS # 2.2 10^3/uL (1.5-8.5); NEUTROPHILS % 45.7 % (36.0-66.0); PLATELET COUNT, AUTOMATED 255 10^3/uL (150-450); RED BLOOD COUNT 4.81 10^6/uL (4.30-6.10); WHITE BLOOD COUNT 4.8 10^3/uL (4.0-10.0)
[2023-01-14 20:15] LABS: C REACTIVE PROTEIN QUANTITATIV < 0.40 MG/DL (<1.0)
[2023-01-14 20:30] LABS: ERYTHROCYTE SEDIMENTATION RATE 16 mm/hr (0-20)
== END ==
LOC: M LAB REF 19:21
PROVIDERS: ATTEND Physician Assistant
DX: G56.03 Carpal tunnel syndrome, bilateral upper limbs (principal)

== ENCOUNTER → 2023-03-25 | Outpatient (CLI) | payer BC ==
[~2023-03-25] MED LIST changes: +ISOVUE-370 76% 100ML VIAL As Ordered ONE
== END ==
LOC: M RAD 15:30
PROVIDERS: ATTEND Otolaryngology
DX: R22.1 Localized swelling, mass and lump, neck (principal)
CPT/HCPCS: 70491; Q9967

== ENCOUNTER → 2024-10-04 | Outpatient (CLI) | payer OTHER ==
[~2024-10-04] MED LIST changes: -ISOVUE-370 76% 100ML VIAL As Ordered ONE
== END ==
LOC: M ADAMS 11:39
PROVIDERS: ATTEND Physician Assistant
DX: M89.8X1 Other specified disorders of bone, shoulder (principal); R59.0 Localized enlarged lymph nodes

== ENCOUNTER → 2024-10-04 | Outpatient (REF) | payer OTHER ==
[2024-10-04 19:46] LABS: BASO # 0.1 10^3/uL (0.0-0.2); BASO % 1.4 % (0.0-1.0); EOS # 0.2 10^3/uL (0.0-0.5); EOS % 3.5 % (0.0-3.0); HEMOGLOBIN 15.6 g/dl (13.5-17.5); LYMPH # 1.9 10^3/uL (1.5-5.0); LYMPH % 33.6 % (24.0-44.0); MEAN CORPUSCULAR HEMOGLOBIN 30.8 pg (27.0-33.0); MEAN CORPUSCULAR HGB CONC 32.5 g/dl (32.0-36.5); MEAN CORPUSCULAR VOLUME 94.7 fl (80.0-96.0); MONO # 0.6 10^3/uL (0.0-0.8); MONO % 9.7 % (2.0-8.0); NEUTROPHILS # 2.9 10^3/uL (1.5-8.5); NEUTROPHILS % 51.4 % (36.0-66.0); PLATELET COUNT, AUTOMATED 278 10^3/uL (150-450); RED BLOOD COUNT 5.07 10^6/uL (4.30-6.10); WHITE BLOOD COUNT 5.7 10^3/uL (4.0-10.0)
[2024-10-04 19:57] LABS: HEMOGLOBIN A1c 5.6 % (4.0-6.0)
[2024-10-04 20:04] LABS: PSA SCREENING 0.53 NG/ML (< 4.00)
[2024-10-04 20:07] LABS: FREE T4 1.39 NG/DL (0.89-1.76)
[2024-10-04 20:08] LABS: THYROID STIMULATING HORMONE 3.036 uIU/ML (0.55-4.78)
[2024-10-04 20:10] LABS: ALKALINE PHOSPHATASE 63 U/L (40-129); ALT/SGPT 20 U/L (7.0-40); AST/SGOT 9 U/L (<34); BILIRUBIN,TOTAL 0.9 MG/DL (0.3-1.2); BLOOD UREA NITROGEN 20 MG/DL (9-23); CALCIUM LEVEL 9.8 MG/DL (8.3-10.6); CARBON DIOXIDE LEVEL 29 MMOL/L (20-31); CHLORIDE LEVEL 105 MMOL/L (98-107); CHOLESTEROL LEVEL 293 MG/DL (<200); CHOLESTEROL RISK RATIO 4.84 (<5); GLOMERULAR FILTRATION RATE > 60.0 (>49); GLUCOSE, FASTING 88 MG/DL (74-106); HDL CHOLESTEROL 60.5 MG/DL (>40); LDL CHOLESTEROL 213.9 MG/DL (<100); NON-HDL-C 232.5 MG/DL; POTASSIUM SERUM 4.8 MMOL/L (3.5-5.1); SODIUM LEVEL 141 MMOL/L (136-145); TOTAL PROTEIN 7.3 G/DL (5.7-8.2); TRIGLYCERIDES LEVEL 93 MG/DL (<150)
[2024-10-04 20:12] LABS: FOLATE > 24.0 NG/ML (>5.4); VITAMIN B12 LEVEL 544 PG/ML (211-911)
== END ==
LOC: M SFHCADAM 11:36
PROVIDERS: ATTEND Physician Assistant
DX: I71.21 Aneurysm of the ascending aorta, without rupture (principal); E78.00 Pure hypercholesterolemia, unspecified; K22.70 Barrett's esophagus without dysplasia; F17.210 Nicotine dependence, cigarettes, uncomplicated; I10 Essential (primary) hypertension; N52.9 Male erectile dysfunction, unspecified; C61 Malignant neoplasm of prostate; Z13.1 Encounter for screening for diabetes mellitus

== ENCOUNTER → 2024-12-13 | Outpatient (CLI) | payer OTHER | LOC: M RAD 15:14 | PROVIDERS: ATTEND Physician Assistant | DX: I71.21 Aneurysm of the ascending aorta, without rupture (principal); F17.210 Nicotine dependence, cigarettes, uncomplicated ==

== ENCOUNTER 2025-03-14 11:35 | Day surgery (SDC) | payer OTHER ==
[~2025-03-14] VITALS: Ht 188 cm; Wt 106.7 kg
[~2025-03-14 11:35] MED LIST changes: +EZET10TA21 PO; +LISI20TA33 PO
[2025-03-14] MEDS ORDERED: GLYCOPYRROLATE INJ 0.2 MG/ML 2 ML VIAL As Ordered ONE (12:40)
[2025-03-14] MEDS ORDERED: propofoL 200 MG/20 ML VIAL As Ordered ONE (12:40)
[2025-03-14] MEDS ORDERED: LIDOCAINE 2% 100MG/5ML SDV (FOR ANES.) As Ordered ONE (12:40)
[2025-03-14 13:40] VITALS: BP 116/58; O2SAT 99
== END 2025-03-14 13:49 | disposition home or self-care (01) ==
LOC: M OPP 11:35
PROVIDERS: ATTEND Internal Medicine Gastroenterology
DX: D12.7 Benign neoplasm of rectosigmoid junction (principal); K57.30 Diverticulosis of large intestine without perforation or abscess without bleeding; K64.8 Other hemorrhoids; Z85.038 Personal history of other malignant neoplasm of large intestine; Z98.890 Other specified postprocedural states; K44.9 Diaphragmatic hernia without obstruction or gangrene; K22.70 Barrett's esophagus without dysplasia; R12 Heartburn; Z79.899 Other long term (current) drug therapy
CPT/HCPCS: 43239; 45385; 88305; J1596